=== PATIENT | male | born 1955 | race Caucasian/White ===

== ENCOUNTER 2020-03-14 08:26 | Day surgery (SDC) | payer MEDICARE ==
[2020-03-07 16:27] LABS: BASOPHILS % (AUTO) 0.2 % (0-1); EOSINOPHILS # (AUTO) 0.1 X10'3 (0-0.9); EOSINOPHILS % (AUTO) 1.8 % (0-6); LYMPHOCYTES # (AUTO) 1.9 X10'3 (1.1-4.8); LYMPHOCYTES % (AUTO) 31.2 % (21-51); MEAN CORPUSCULAR HEMOGLOBIN 29.5 PG (27.0-31.0); MEAN CORPUSCULAR HGB CONC 32.9 g/dL (33.0-36.5); MEAN CORPUSCULAR VOLUME 89.8 FL (78-98); MONOCYTES # (AUTO) 0.7 X10'3 (0-0.9); MONOCYTES % (AUTO) 12.3 % (2-12); NEUTROPHILS # (AUTO) 3.3 X10'3 (1.8-7.7); NEUTROPHILS % (AUTO) 54.5 % (42-75); PRE OP HEMATOCRIT 38.5 % (42.0-52.0); PRE OP HEMOGLOBIN 12.7 g/dL (14.0-17.9); PRE OP PLATELET COUNT 166 X10'3 (140-440); RED BLOOD COUNT 4.28 X10'6 (4.70-6.10); RED CELL DISTRIBUTION WIDTH 13.3 % (11.5-14.5)
[2020-03-07 16:33] LABS: PRE OP PROTIME 10.6 SECONDS (9.0-12.0)
[2020-03-07 16:35] LABS: ALBUMIN/GLOBULIN RATIO 1.3 (1.1-1.5); ALKALINE PHOSPHATASE 53 IU/L (46-116); BLOOD UREA NITROGEN 25 MG/DL (7-18); CALCIUM 8.8 MG/DL (8.5-10.1); CHLORIDE 106 MMOL/L (99-107); PRE OP ALT 21 U/L (30-65); PRE OP ANION GAP 6 (8-16); PRE OP AST 17 U/L (10-37); PRE OP BILIRUB, TOTAL 0.3 MG/DL (0.0-1.0); PRE OP GLUCOSE 83 MG/DL (70-104); PRE OP POTASSIUM 3.8 MMOL/L (3.4-5.1); PRE OP SODIUM 141 MMOL/L (135-145); TOTAL PROTEIN 7.2 G/DL (6.4-8.2); eGFR 75 ML/MIN
[~2020-03-14] VITALS: Ht 182.9 cm; Wt 103.4 kg
[2020-03-14] VITALS (17 sets, daily range): BP systolic 120–158; BP diastolic 82–95
[~2020-03-14 08:26] MED LIST: ACYC-1 PO; CITA10TA9 PO; famotidine 20mg tablet PO ONE; oxymetazoline 15 ML nasal spray NS PRN; ringers solution, lacted 1,000 ML IV SCH
[2020-03-14] MEDS ORDERED: midazolam 2 mg/2 ml injection IV ONE (08:27)
[2020-03-14] MEDS ORDERED: triamcinolone acetonide 40mg/ml inj ONE (09:34)
[2020-03-14] MEDS ORDERED: methylPREDNISolone acetate 80mg/ml inj**IM only ONE (09:34)
[2020-03-14] MEDS ORDERED: cocaine 4% topical solution 4ml bottle ONE (09:34)
[2020-03-14] MEDS ORDERED: LIDOcaine 1% W/epiNEPHrine 1:100,000 20ml vial ONE (09:35)
[2020-03-14] MEDS ORDERED: oxymetazoline 15 ML nasal spray NS ONE (09:35)
[2020-03-14] MEDS ORDERED: mupirocin 2% ointment 22GM ONE (09:35)
[2020-03-14] MEDS ORDERED: dexamethasone sod phosphate 10mg/ml inj ONE (10:56)
[2020-03-14] MEDS ORDERED: propofol 10mg/ml 20ml vial IV ONE (10:56)
[2020-03-14] MEDS ORDERED: sevoflurane 250ml liquid IH ONE (10:56)
[2020-03-14] MEDS ORDERED: ePHEDrine 50MG/ML INJ. ONE (10:56)
[2020-03-14] MEDS ORDERED: ondansetron/PF 4mg/2ml inj ONE (10:56)
[2020-03-14] MEDS ORDERED: fentaNYL/PF 50MCG/1 ML 2ML syringe IV ONE (11:00)
[2020-03-14] MEDS ORDERED: cefTAZidime 1gm inj ONE (11:14)
[2020-03-14] MEDS ORDERED: morphine 4 MG/ML inj SYRINge IV PRN (11:35)
[2020-03-14] MEDS ORDERED: ringers solution, lacted 1,000 ML IV SCH (11:35)
[2020-03-14] MEDS ORDERED: proCHLORperazine 10 MG/2 ml inj IV PRN (11:35)
[2020-03-14] MEDS ORDERED: HYDROmorphone inj. 0.5 MG/0.5 ML DISP.SYRIN IV PRN ×2 (11:35)
[2020-03-14] MEDS ORDERED: ondansetron/PF 4mg/2ml inj IV PRN (11:35)
[2020-03-14] MEDS ORDERED: meperidine/PF 25mg/ml syringe IV PRN (11:35)
[2020-03-14] MEDS ORDERED: acetaminophen 1,000mg/100ml IV 100 ML IV PRN (11:35)
[2020-03-14] MEDS ORDERED: hydrALAZINE 20mg/ml inj. IV PRN (11:40)
[2020-03-14] MEDS ORDERED: labetalol 20mg/4ml (5mg/ml) syringe IV PRN (11:40)
--- NOTE | 2020-03-14 12:42 | NUR ---
Received from OR via [facility], accompanied by Anesthesiologist DR GARRETT and report given by Anesthesiologist. PT DROWSY, DENIES PAIN, NIDHIAT AYSE W/RONNIES IN PLACE. Addendum: 03/14/20 at 1331 by Brenda Medellin RN Amended: Links added.
[2020-03-14] MEDS ORDERED: BUPIVAcaine 0.5% W/EPI /PF 30ml vial IJ ONE (12:46)
[2020-03-14] MEDS: morphine 2 MG/ML inj. syringe IV PRN ×2 (13:04→13:20)
[2020-03-14] MEDS ORDERED: mupirocin 2% ointment 22GM TP SCH (14:20)
[2020-03-14] MEDS ORDERED: oxymetazoline 15 ML nasal spray NS SCH ×2 (14:20→14:55)
[2020-03-14] MEDS ORDERED: salt irrigation nasal spray 45 ML SPRAY NS PRN (14:25)
--- NOTE | 2020-03-14 15:42 | NUR ---
PT W/ZAY AMT OF BLEEDING AFTER HE STOOD UP, DR BAL IN TO SEE PTNIA TO SEND PT HOME, D/C INSTRUCTIONS GIVEN AND GONE OVER W/PT WHO VERBALIZED UNDERSTANDING, PT D/CD TO HOME VIA W/C TO PRIVATE VEHICLE W/O INCIDENT. Addendum: 03/14/20 at 1604 by Brenda Medellin RN Amended: Links added.
== END 2020-03-14 15:42 | disposition home or self-care (01) ==
LOC: PAS 08:26
PROVIDERS: ATTEND Otolaryngology
DX: J34.2 Deviated nasal septum (principal); J34.89 Other specified disorders of nose and nasal sinuses; J34.3 Hypertrophy of nasal turbinates; J32.8 Other chronic sinusitis; Z11.59 Encounter for screening for other viral diseases; Z79.01 Long term (current) use of anticoagulants; Z79.899 Other long term (current) drug therapy; Z85.46 Personal history of malignant neoplasm of prostate; Z98.890 Other specified postprocedural states; Z91.09 Other allergy status, other than to drugs and biological substances
CPT/HCPCS: 30140; 30520; 31253; 31267; 36415; 61782; 80053; 82948; 85025; 85576; 85610; 85730; 87635; 93005; A6402; C1726; C9250; J0360; J0713; J1040; J1100; J2250; J2270; J2405; J2704; J3010; J3301; J7040; J7120; U0003; 88300; 88304; 88311; A4618; A7000

== ENCOUNTER 2020-12-19 08:23 | Day surgery (SDC) | payer MEDICARE ==
[2020-12-13 14:19] LABS: BASOPHILS % (AUTO) 0.3 % (0-1); EOSINOPHILS # (AUTO) 0.2 X10'3 (0-0.9); EOSINOPHILS % (AUTO) 3.2 % (0-6); LYMPHOCYTES # (AUTO) 1.7 X10'3 (1.1-4.8); LYMPHOCYTES % (AUTO) 25.5 % (21-51); MEAN CORPUSCULAR HEMOGLOBIN 29.8 PG (27.0-31.0); MEAN CORPUSCULAR HGB CONC 32.9 g/dL (33.0-36.5); MEAN CORPUSCULAR VOLUME 90.5 FL (78-98); MEAN PLATELET VOLUME 9.1 FL (7.4-10.4); MONOCYTES # (AUTO) 0.8 X10'3 (0-0.9); MONOCYTES % (AUTO) 12.1 % (2-12); NEUTROPHILS % (AUTO) 58.9 % (42-75); PRE OP HEMOGLOBIN 12.8 g/dL (14.0-17.9); PRE OP PLATELET COUNT 178 X10'3 (140-440); RED CELL DISTRIBUTION WIDTH 13.7 % (11.5-14.5)
[2020-12-13 14:31] LABS: ALBUMIN 3.9 G/DL (3.4-5.0); ALBUMIN/GLOBULIN RATIO 1.1 (1.1-1.5); ALKALINE PHOSPHATASE 69 IU/L (46-116); BLOOD UREA NITROGEN 19 MG/DL (7-18); BUN/CREATININE RATIO 23.5 (5.4-32.0); CALCIUM 9.1 MG/DL (8.5-10.1); CHLORIDE 105 MMOL/L (99-107); CREATININE 0.81 MG/DL (0.60-1.10); PRE OP ALT 26 U/L (30-65); PRE OP ANION GAP 8 (8-16); PRE OP AST 20 U/L (10-37); PRE OP BILIRUB, TOTAL 0.3 MG/DL (0.0-1.0); PRE OP POTASSIUM 4.2 MMOL/L (3.4-5.1); PRE OP SODIUM 140 MMOL/L (135-145); TOTAL CARBON DIOXIDE 27.2 MMOL/L (24-32); TOTAL PROTEIN 7.6 G/DL (6.4-8.2); eGFR > 90 ML/MIN
[2020-12-13 14:34] LABS: PRE OP GLUCOSE 85 MG/DL (70-104)
[~2020-12-19] VITALS: Ht 185.4 cm; Wt 97.8 kg
[2020-12-19] VITALS (9 sets, daily range): BP systolic 123–143; BP diastolic 74–93
[~2020-12-19 08:23] MED LIST changes: +BUPIVAcaine/PF 2.5 mg/ml (0.25%) 30ml vial ONE; -CITA10TA9 PO; +CITA20TA28 PO; +CYAN25003 SL; +FLAX100031 PO; +LIDOcaine 1% 30ml preserv. free vial ONE; +MAGN400C PO; +MULT-1085 PO; +OLME40TA18 PO; +VITA400T10 PO; +ceFAZolin 2gm in dextrose, iso 50 ML IV ONE; -oxymetazoline 15 ML nasal spray NS PRN
[2020-12-19] MEDS ORDERED: midazolam 1 mg/ML 2ml injection ONE (09:44)
[2020-12-19] MEDS ORDERED: fentaNYL/PF 50MCG/1 ML 2ML syringe ONE (09:44)
[2020-12-19] MEDS ORDERED: rocuronium 10mg/ml inj IV ONE (09:44)
[2020-12-19] MEDS ORDERED: propofol inj 20 ML IV ONE (09:45)
[2020-12-19] MEDS ORDERED: sevoflurane 250ml liquid IH ONE (09:49)
[2020-12-19] MEDS ORDERED: meperidine/PF 25mg/ml syringe IV PRN ×3 (10:35)
[2020-12-19] MEDS ORDERED: proCHLORperazine 10 MG/2 ml inj IV PRN (10:35)
[2020-12-19] MEDS ORDERED: morphine 4 MG/ML inj SYRINge IV PRN (10:35)
[2020-12-19] MEDS ORDERED: ringers solution, lacted 1,000 ML IV SCH (10:35)
[2020-12-19] MEDS ORDERED: ondansetron/PF 4mg/2ml inj IV PRN (10:35)
[2020-12-19] MEDS ORDERED: morphine 2 MG/ML inj. syringe IV PRN (10:35)
[2020-12-19] MEDS ORDERED: ondansetron/PF 4mg/2ml inj ONE (11:14)
[2020-12-19] MEDS ORDERED: dexamethasone sod phosphate 4mg/ml inj. ONE (11:14)
[2020-12-19] MEDS ORDERED: glycopyrrolate 0.2mg/ml inj ONE (11:14)
[2020-12-19] MEDS ORDERED: neostigmine methylsulfate 1 MG/ML 10ml vial ONE (11:14)
[2020-12-19] MEDS ORDERED: HYDROcodone/acetaminophen 10/325mg tab PO PRN (11:30)
[2020-12-19] MEDS ORDERED: HYDROcodone/acetaminophen 5mg/325mg tablet PO PRN (11:30)
--- NOTE | 2020-12-19 11:30 | NUR ---
ADMITTED TO PACU FROM OR ACCOMPANIED BY ANESTHESIA. INTIAL PHYSICAL ASSESSMENT DONE AND RECORDED. REPORT RECEIVED FROM ANESTHESIA.
--- NOTE | 2020-12-19 13:00 | NUR ---
DISCHARGE CRITERIA MET, DISCHARGE INSTRUCTIONS GIVEN, DEMONSTRATES VERBAL UNDERSTANDING. DISCHARGED HOME IN GOOD CONDITION.
== END 2020-12-19 13:00 | disposition home or self-care (01) ==
LOC: PAS 08:23
PROVIDERS: ATTEND Surgery
DX: K40.20 Bilateral inguinal hernia, without obstruction or gangrene, not specified as recurrent (principal); Z20.822 Contact with and (suspected) exposure to COVID-19; I10 Essential (primary) hypertension; F32.9 Major depressive disorder, single episode, unspecified; Z85.46 Personal history of malignant neoplasm of prostate; Z98.890 Other specified postprocedural states; Z72.89 Other problems related to lifestyle; Z79.899 Other long term (current) drug therapy; Z82.49 Family history of ischemic heart disease and other diseases of the circulatory system
CPT/HCPCS: 36415; 49650; 80053; 82948; 85025; 87426; 93005; C1781; J1100; J2001; J2250; J2405; J2704; J2710; J3010; J3490; A4215; A4618; J7120